=== PATIENT | female | born 1960 ===

== ENCOUNTER 2020-04-27 16:43 | Emergency (ER) | payer OTHER ==
[~2020-04-27] VITALS: Ht 162.6 cm; Wt 67.3 kg
[2020-04-27 16:52] VITALS: Ht 162.6 cm; Wt 67.3 kg
[2020-04-27] MEDS ORDERED: CELEXA40 MG PO (16:54)
[2020-04-27] MEDS ORDERED: SUBOXONE 2 MG-01 TAB SL (16:55)
[2020-04-27 17:17] LABS: BILIRUBIN NEGATIVE (NEGATIVE); KETONE NEGATIVE (NEGATIVE); NITRITE NEGATIVE (NEGATIVE); UROBILINOGEN NORMAL mg/dL (< 2)
[2020-04-27 17:19] LABS: BACTERIA FEW HPF (NONE SEEN); SQUAMOUS EPITHELIAL 0-5 HPF (0-4)
[2020-04-27 17:42] LABS: BASOPHILS 0.7 % (0-2); EOSINOPHILS 6.1 % (0-7); HEMATOCRIT 38.4 % (36.0-48.0); HEMOGLOBIN 12.8 g/dL (12-16); LYMPHOCYTE ABS# 1.95 10x3/uL (1.18-3.74); MCH 31.1 pg (26.0-34.0); MCHC 33.3 g/dL (31.0-37.0); MCV 93.4 fL (80.0-100.0); MEAN PLATELET VOLUME 9.8 fL (7.4-10.4); MONOCYTES 5.4 % (2-11); NEUTROPHIL ABS# 3.08 10x3/uL (1.56-6.13); NEUTROPHILS 53.8 % (40-80); PLATELET COUNT 191 10x3/uL (130-400); RBC 4.11 10x6/uL (4.00-5.40); WBC 5.7 10x3/uL (4.8-10.8)
[2020-04-27 17:53] LABS: ANION GAP 7.2 mmol/L (8-16); CALCIUM 8.9 mg/dL (8.5-10.1); CARBON DIOXIDE 29.7 mmol/L (21.0-32.0); POTASSIUM - SERUM 3.9 mmol/L (3.5-5.1)
[2020-04-27 17:59] LABS: ALBUMIN 3.6 g/dL (3.4-5.0); BILIRUBIN - TOTAL 0.15 mg/dL (0.2-1.3); MAGNESIUM - SERUM 1.9 mg/dL (1.8-2.4); PROTEIN - SERUM 7.3 g/dL (6.4-8.2)
[2020-04-27] MEDS ORDERED: CHRONULAC30 ML PO (18:25)
[2020-04-27] MEDS ORDERED: BACTRIM DS TAB1 EAC1 PO (18:25)
[2020-04-27 18:47] VITALS: BP 107/64
== END 2020-04-27 18:48 | disposition home or self-care (01) ==
LOC: D.ER 16:43
PROVIDERS: Emergency Medicine
DX: N39.0 Urinary tract infection, site not specified (principal); K59.00 Constipation, unspecified; B37.3 Candidiasis of vulva and vagina; M79.605 Pain in left leg; M79.604 Pain in right leg; R11.0 Nausea